=== PATIENT | female | born 1955 | race Caucasian/White ===

== ENCOUNTER → 2017-11-14 | Day surgery (SDC) | payer OTHER ==
[~2017-11-14] MED LIST: Benzocaine 20% Spray 60 ML CAN ONE
== END ==
LOC: ENDO/OP 08:22
PROVIDERS: ATTEND Internal Medicine
DX: K44.9 Diaphragmatic hernia without obstruction or gangrene (principal); K21.9 Gastro-esophageal reflux disease without esophagitis; Z86.010 Personal history of colon polyps; Z79.899 Other long term (current) drug therapy; Z90.49 Acquired absence of other specified parts of digestive tract; Z98.890 Other specified postprocedural states
CPT/HCPCS: 91010

== ENCOUNTER 2017-11-22 06:04 | Inpatient (IN) | payer OTHER ==
[2017-11-20 15:48] VITALS: BMI 38.0
[2017-11-22 07:57] LABS: Hemoglobin 5.8 g/dL (12.0-16.0); Mean Corpuscular HGB CONC 28.9 g/dL (32.0-36.0); Mean Corpuscular Hemoglobin 18.3 pg (27.0-31.0); Mean Corpuscular Volume 63.3 fl (81.0-99.0); Mean Platelet Volume 6.1 fL (7.4-10.4); Platelet Count 285 thou/uL (130-400); RBC Distribution Width 17.5 % (11.5-14.5); Red Blood Cell (RBC) Count 3.19 mill/uL (4.20-5.40); White Blood Cell (WBC) Count 4.3 thou/uL (4.8-10.8)
[2017-11-22 08:32] LABS: #Eosinphils 0.1 thou/uL (0.0-0.7); #Lymphocytes 1.2 thou/uL (1.20-3.40); #Monocytes 0.6 thou/uL (0.11-0.59); #Neutrophils 2.4 thou/uL (1.40-6.50); %Basophils 0.5 % (0.0-1.0); %Eosinophils 2.3 % (0.0-10.0); %Lymphocytes 27.1 % (21.0-51.0); %Monocytes 14.8 % (0.0-10.0); %Neutrophils 55.4 % (42.0-75.0)
[2017-11-22 08:33] LABS: Anisocytosis SLIGHT = 6-15 cells (100X) (0-5/hpf); Eosinophils 1 % (0-10); Hypochromia MODERATE=16-30 cells (100X) (0-5/hpf); Lymphocytes 27 % (21-51); MDiff Complete? YES; Monocytes 11 % (0-10); Neutrophil 59 % (42-75)
[2017-11-22] MEDS ORDERED: Sodium Chloride 0.9% 10 ML ONE (10:04)
[2017-11-22] MEDS ORDERED: D5 1/2 NS w/20 mEq KCL 1,000 ML ONE (10:09)
[2017-11-22] MEDS: Pantoprazole 40 MG VIAL IVP SCH ×2 (10:10→20:48)
[2017-11-22] MEDS: D5 1/2 NS w/20 mEq KCL 1,000 ML IV SCH ×2 (11:00→16:23)
--- NOTE | 2017-11-22 13:18 | CON ---
DATE OF CONSULTATION: 11/22/2017 HISTORY OF PRESENT ILLNESS: The patient is a 62-year-old female who was to undergo a Nisse n fundoplication for symptomatic hiatal hernia by Dr. Ledezma this morning. She was noted on routine l aboratory to have a hemoglobin of 5.8, therefore, the surgery was canceled. The patient denies any m joann, hematochezia, any menstrual blood loss. She denies any abdominal pain. She was seen by Dr. Mansoor diego on 11/07/2017 and underwent an EGD for her hiatal hernia and gastroesophageal reflux, that showed a 10 cm hiatal hernia with some Isaac's ulcers, some nodularity at the GE junctio, which was biops ied and showed no Leal's esophagus and no other abnormalities. The patient undergoes colonoscopy every 3 years for history of colon polyps and her last colonoscopy was approximately 2 years ago. PAST MEDICAL HISTORY: Significant for hypertension. PAST SURGICAL HISTORY: Includes cholecystectomy. ALLERGIES: No known allergies. SOCIAL HISTORY: She drinks occasionally. Does not smoke. FAMILY HISTORY: Negative for GI or liver disease. REVIEW OF SYSTEMS: Constitutional: No fever or chills. No weight loss. Eyes: No blurred vision o r double vision. ENT: No sore throat or earaches. Cardiovascular: No chest pain or palpitations. Pulmonary: No shortness of breath, cough or wheezing. Gastrointestinal: See above. Genitourinary : No hematuria or dysuria. Musculoskeletal: No joint pain or muscle weakness. Skin: No rashes. Neurologic: No numbness or seizure activity. PHYSICAL EXAMINATION: GENERAL: Shows a pale female in no acute distress. VITAL SIGNS: Blood pressure 131/69, pulse 74, respiratory rate 20 and temperature 97.6. HEENT: Shows pale mucous membranes. NECK: Supple. CHEST: Clear. CARDIOVASCULAR: Regular rate and rhythm. ABDOMEN: Soft, nontender, without organomegaly or masses. Bowel sounds are present and normoactive. RECTAL: Deferred. EXTREMITIES: Normal. NEUROLOGIC: Nonfocal. LABORATORY DATA: Shows a white blood cell count of 5.0, hemoglobin of 6.0, hematocrit 20.7 with an M CV of 63.6, platelet count 337,000. Chemistries are essentially normal except for glucose of 123 and BUN 27. ASSESSMENT: 1. Severe microcytic anemia consistent with iron deficiency. 2. Large hiatal hernia with Isaac's lesions - probable source of the iron deficiency. 3. History of precancerous colon polyps - patient is up to date on colonoscopy. RECOMMENDATIONS: 1. Continue proton pump inhibitor. 2. Begin iron replacement therapy. 3. Transfuse. 4. May consider outpatient capsule endoscopy - defer to Dr. Michael and Dr. Ledezma.
[2017-11-22 15:38] LABS: #Basophils 0.1 thou/uL (0.0-0.2); #Eosinphils 0.1 thou/uL (0.0-0.7); #Lymphocytes 1.8 thou/uL (1.20-3.40); #Monocytes 0.4 thou/uL (0.11-0.59); %Basophils 1.2 % (0.0-1.0); %Eosinophils 1.7 % (0.0-10.0); %Monocytes 9.5 % (0.0-10.0); %Neutrophils 46.6 % (42.0-75.0); Hemoglobin 6.8 g/dL (12.0-16.0); Mean Corpuscular HGB CONC 30.4 g/dL (32.0-36.0); Mean Corpuscular Volume 65.9 fl (81.0-99.0); Mean Platelet Volume 6.4 fL (7.4-10.4); Platelet Count 266 thou/uL (130-400); RBC Distribution Width 20.9 % (11.5-14.5); Red Blood Cell (RBC) Count 3.39 mill/uL (4.20-5.40); White Blood Cell (WBC) Count 4.3 thou/uL (4.8-10.8)
[2017-11-22] MEDS ORDERED: CEFAZOLIN/Water 2 GM/20 ML SYRINGE SLOW IVP SCH (16:30)
[2017-11-22] MEDS ORDERED: FLU VACC QS2017-18 36 mo. & older 0.5 ML SYRINGE IM ONE (21:00)
[2017-11-23] MEDS: D5 1/2 NS w/20 mEq KCL 1,000 ML IV SCH ×4 (01:30→20:14)
[2017-11-23] MEDS: Nebivolol HCl 5 MG TAB PO SCH (05:38)
[2017-11-23] MEDS ORDERED: Fentanyl 100 MCG/2 ML VIAL ONE ×2 (06:11→09:25)
[2017-11-23] MEDS ORDERED: Midazolam HCl 2 mg/2 ml Vial ONE (06:11)
[2017-11-23] MEDS ORDERED: CEFAZOLIN/Water 2 GM/20 ML SYRINGE ONE (06:11)
[2017-11-23 06:45] LABS: #Eosinphils 0.2 thou/uL (0.0-0.7); #Lymphocytes 2.7 thou/uL (1.20-3.40); #Monocytes 0.7 thou/uL (0.11-0.59); %Basophils 0.4 % (0.0-1.0); %Eosinophils 4.2 % (0.0-10.0); %Lymphocytes 47.8 % (21.0-51.0); %Monocytes 11.8 % (0.0-10.0); %Neutrophils 35.8 % (42.0-75.0); Hemoglobin 9.3 g/dL (12.0-16.0); Mean Corpuscular HGB CONC 30.1 g/dL (32.0-36.0); Mean Corpuscular Hemoglobin 21.1 pg (27.0-31.0); Mean Platelet Volume 6.2 fL (7.4-10.4); Platelet Count 311 thou/uL (130-400); RBC Distribution Width 24.4 % (11.5-14.5); Red Blood Cell (RBC) Count 4.39 mill/uL (4.20-5.40); White Blood Cell (WBC) Count 5.6 thou/uL (4.8-10.8)
[2017-11-23] MEDS ORDERED: Bupivacaine/Epinephrine 0.25% 30 ML VIAL ONE (06:48)
[2017-11-23] MEDS ORDERED: ePHEDrine/0.9% NaCl/PF SYRINGE 50 mg/10 ml ONE (06:56)
[2017-11-23] MEDS ORDERED: Propofol 200 MG/20 ML VIAL ONE (06:56)
[2017-11-23] MEDS ORDERED: Glycopyrrolate 0.2 MG/ML 5 ML SYRINGE ONE (06:56)
[2017-11-23] MEDS ORDERED: Lidocaine 1% PF 5 ML VIAL ONE (06:56)
[2017-11-23] MEDS ORDERED: Ondansetron HCl/PF 4 MG/2 ML Vial ONE (06:56)
[2017-11-23] MEDS ORDERED: Dexamethasone 20 MG/5 ML VIAL ONE (06:56)
[2017-11-23] MEDS ORDERED: Meperidine HCl/PF 25 MG/ML VIAL SLOW IVP PRN (07:25)
[2017-11-23] MEDS ORDERED: HYDROmorphone 2 MG/ML VIAL SLOW IVP PRN (07:25)
[2017-11-23] MEDS ORDERED: Promethazine HCl 25 MG/ML VIAL SLOW IVP PRN (07:25)
[2017-11-23] MEDS ORDERED: Morphine Sulfate 2 MG/ML SYRINGE SLOW IVP PRN (07:25)
[2017-11-23] MEDS ORDERED: FLU VACC QS2017-18 36 mo. & older 0.5 ML SYRINGE IM ONE (09:00)
[2017-11-23] MEDS ORDERED: Hydrocodone-Acetamin 15 ML UDCUP PO PRN (09:03)
[2017-11-23] MEDS ORDERED: diphenhydrAMINE 50 MG/ML VIAL IVP PRN ×2 (09:03→09:17)
[2017-11-23] MEDS ORDERED: Ondansetron HCl/PF 4 MG/2 ML Vial IVP PRN ×2 (09:03→09:17)
[2017-11-23] MEDS ORDERED: Dextrose 5% in Water 1,000 ML IV PRN (09:03)
[2017-11-23] MEDS ORDERED: Dextrose 50% Abboject 50 ML SYRINGE SLOW IVP PRN (09:03)
[2017-11-23] MEDS ORDERED: hydrALAZINE 20 MG/ML VIAL SLOW IVP PRN (09:03)
[2017-11-23] MEDS ORDERED: Promethazine HCl 25 MG/ML VIAL IM PRN ×2 (09:03→09:17)
[2017-11-23] MEDS ORDERED: Naloxone HCl 0.4 mg/ml Vial IV PRN (09:17)
[2017-11-23] MEDS ORDERED: Zolpidem Tartrate 5 MG TAB PO PRN (09:17)
[2017-11-23] MEDS ORDERED: diphenhydrAMINE 25 MG CAP PO PRN (09:17)
[2017-11-23] MEDS ORDERED: Fentanyl 5000 MCG/250 ML CADD IVPB PRN (09:17)
[2017-11-23] MEDS ORDERED: diphenhydrAMINE 50 MG/ML VIAL IM PRN (09:17)
[2017-11-23] MEDS ORDERED: Communication Order-Pharmacy FS SCH (09:30)
--- NOTE | 2017-11-23 09:31 | OP ---
PREOPERATIVE DIAGNOSES: Large hiatal hernia with ulceration and anemia. SURGEON: Ruperto Ledezma M.D. PROCEDURE PERFORMED: Laparoscopic hiatal hernia repair and Elder fundoplication and esophagogastrod uodenoscopy. INDICATIONS: This is a 62-year-old female, who has been having progressive chest pain. She had a ch est x-ray showing that there was an air fluid level. A CT scan showed a large hiatal hernia. EGD sh owed ulcerations, which she came in for the surgery yesterday, hemoglobin is only 6, so she had 2 uni ts of blood transfusion up to 9. FINDINGS: Moderate size hiatal hernia. The fascia was closed easily with sutures. EGD unremarkable . PROCEDURE IN DETAIL: After informed consent was obtained, the patient was taken to the operating jolanta m and given general endotracheal anesthesia. She was placed in the supine position. The abdomen was prepped and draped in the usual fashion. Local anesthesia infiltrated subcutaneously and deep. A 5 mm incision was performed approximately 8 inches below the xiphoid slightly to the left. Veress nee dle inserted. Drop test performed. Pneumoperitoneum was created to a volume of 2 liters of carbon d ioxide. Utilizing a bladeless 5 mm trocar and 0 degree laparoscope, direct visual entry into the abd ominal cavity was performed. Pneumoperitoneum was created to a pressure of 15 mmHg. The patient tremayne anand in steep reverse Trendelenburg position and Nathansen liver retractor inserted. Left lobe of tanner er retracted superiorly. A 5 mm port was placed just to the left of the falciform, an 8 mm port was placed further lateral and another 5 mm port placed inferior left side. The stomach was reduced from the chest partially and then the gastrophrenic ligament divided with the LigaSure. The peritoneum o pened anterior with the LigaSure. The left crura was defined with the LigaSure, then the short gastr ics were taken down utilizing the LigaSure, then the posterior crura was defined and a [place] drain was placed. This allowed further retraction and the entire hiatus was opened up and the esophagus re duced. Then, a 40 Italian bougie was inserted and directed into the stomach. A posterior crural plic ation was performed with 0 Ethibond in the Sew-Right and tie knot device. Then the fundus was graspe d and brought to the right side of the esophagus. It was sutured to the left fundus as well as the e sophagus with interrupted 2-0 silk sutures tied intracorporeally. Three sutures used. Then intraope rative endoscopy was performed. The video endoscope inserted under direct vision and advanced into t he sleeve. The stomach insufflated with air under water, there was no air leak. Stomach decompresse d. Scope removed. The patient tolerated the procedure well. Then the skin closed with interrupted 4-0 Rapide, this Dermabond applied. Patient tolerated the procedure well and transferred to recovery in good condition. Sponge and needle count verified correct x2.
[2017-11-23] MEDS ORDERED: fentaNYL Citrate/PF 2,000 MCG in Sodium Chloride 0.9% 60 ML IV PRN (09:45)
[2017-11-23] MEDS ORDERED: D5 1/2 NS w/20 mEq KCL 1,000 ML ONE (09:49)
[2017-11-23] MEDS: Pantoprazole 40 MG VIAL IVP SCH ×2 (10:41→20:13)
[2017-11-23] MEDS ORDERED: Ketorolac Tromethamine 30 MG/ML VIAL ONE (11:07)
[2017-11-23] MEDS ORDERED: Promethazine HCl 25 MG/ML VIAL ONE (11:18)
[2017-11-23] MEDS: Ketorolac Tromethamine 30 MG/ML VIAL IVP SCH ×2 (12:39→17:03)
[2017-11-24] MEDS: Ketorolac Tromethamine 30 MG/ML VIAL IVP SCH ×3 (00:11→13:35)
[2017-11-24] MEDS: D5 1/2 NS w/20 mEq KCL 1,000 ML IV SCH (05:43)
[2017-11-24 06:36] LABS: Anion Gap 11 mmol/L (10-20); BUN (Urea Nitrogen) 15 mg/dL (9.8-20.1); Calc. Creatinine Clearance 99 mL/min (70-130); Calcium 9.8 mg/dL (7.8-10.44); Carbon Dioxide 21 mmol/L (23-31); Chloride 108 mmol/L (98-107); Estimated GFR-MDRD 54; Glucose 117 mg/dL (80-115); Potassium 4.6 mmol/L (3.5-5.1); Sodium 135 mmol/L (136-145)
[2017-11-24 07:48] LABS: #Lymphocytes 1.5 thou/uL (1.20-3.40); #Monocytes 0.7 thou/uL (0.11-0.59); #Neutrophils 5.7 thou/uL (1.40-6.50); %Eosinophils 0.2 % (0.0-10.0); %Lymphocytes 18.5 % (21.0-51.0); %Neutrophils 72.3 % (42.0-75.0); Hemoglobin 7.1 g/dL (12.0-16.0); Hypochromia MODERATE=16-30 cells (100X) (0-5/hpf); MDiff Complete? YES; Mean Corpuscular HGB CONC 29.8 g/dL (32.0-36.0); Mean Corpuscular Hemoglobin 20.9 pg (27.0-31.0); Mean Platelet Volume 5.3 fL (7.4-10.4); Microcytosis MODERATE=15-30 cells (100X) (0-5/hpf); Platelet Count 243 thou/uL (130-400); Poikilocytosis SLIGHT = 6-15 cells (100X) (0-5/hpf); RBC Distribution Width 24.1 % (11.5-14.5); Red Blood Cell (RBC) Count 3.41 mill/uL (4.20-5.40); White Blood Cell (WBC) Count 7.9 thou/uL (4.8-10.8)
[2017-11-24] MEDS ORDERED: Pantoprazole 40 MG VIAL IVP SCH (09:00)
[2017-11-24] MEDS ORDERED: Enoxaparin Sodium 40 MG/0.4 ML SYRINGE SC SCH (09:00)
[2017-11-24] MEDS: Pantoprazole 40 MG VIAL IVP SCH (09:34)
--- NOTE | 2017-11-24 11:38 | RAD ---
SINGLE CONTRAST UPPER GI: CLINICAL HISTORY: Recent hiatal herniorrhaphy, postoperative evaluation. FINDINGS: Small volume radiopaque contrast was instilled and was ingested by the patient unremarkably. Contras t freely traverses the esophagus and operative site without abnormal leakage. Contrast enters into t he stomach without significant abnormal holdup. IMPRESSION: No abnormal leakage of contrast evident fluoroscopically. POS: [facility]
[2017-11-24] MEDS ORDERED: Hydrocodone-Acetamin 15 ML UDCUP PO PRN (12:08)
[2017-11-24 12:38] VITALS: BP 132/78; TEMP 97.4
[2017-11-24] MEDS: Nebivolol HCl 5 MG TAB PO SCH (14:17)
--- NOTE | 2017-11-24 16:39 | DIS ---
DISCHARGE DIAGNOSIS: Bleeding hiatal hernia, severe anemia. PROCEDURES DURING ADMISSION: Blood transfusion, laparoscopic hiatal hernia repair with Elder fundop lication, intraoperative esophagogastroduodenoscopy, postoperative Gastrografin swallow. HOSPITAL COURSE: The patient was admitted. She was severely anemic with hemoglobin 5.8. She requir ed 2 units of packed cells. Then the following day when her hemoglobin is back up over 9, she was ta emmanuel to the operating room where she underwent a laparoscopic hiatal hernia repair that went well. In traoperative EGD was fine. Postoperatively, she has done well. She tolerated ice chips well. She i s going down for her swallow and will be started on liquids within she will be discharged when she to lerates 8 ounces fluid in 2 hours. DISCHARGE MEDICATIONS: Include hydrocodone elixir, Zofran and Prevacid Solutab. She will follow up with me in 3 days to check her iron.
== END 2017-11-24 14:12 | disposition home or self-care (01) | DRG 326 ==
LOC: SDC 06:04 → SURG A 14:23
PROVIDERS: ADMIT Surgery; ATTEND Surgery
PROC: 30233N1 Transfusion of Nonautologous Red Blood Cells into Peripheral Vein, Percutaneous Approach (ICD-10-PCS; 2017-11-22)
PROC: 0DV48ZZ Restriction of Esophagogastric Junction, Via Natural or Artificial Opening Endoscopic (ICD-10-PCS; principal; 2017-11-23)
PROC: 0BQT4ZZ Repair Diaphragm, Percutaneous Endoscopic Approach (ICD-10-PCS; 2017-11-23)
DX: K21.9 Gastro-esophageal reflux disease without esophagitis (principal); K25.4 Chronic or unspecified gastric ulcer with hemorrhage; K44.9 Diaphragmatic hernia without obstruction or gangrene; D50.9 Iron deficiency anemia, unspecified; I10 Essential (primary) hypertension; D50.0 Iron deficiency anemia secondary to blood loss (chronic)
CPT/HCPCS: 36415; 36430; 74241; 80048; 80053; 85025; 85060; 86850; 86900; 86901; 93005; 93010; A4216; C9113; J0131; J1100; J1650; J1885; J2001; J2250; J2405; J2550; J2704; J3010; J7050; P9016

== ENCOUNTER → 2018-07-16 | Day surgery (SDC) | payer OTHER | LOC: BICULT 12:29 | PROVIDERS: ATTEND Surgery | PROC: 0HBT3ZX Excision of Right Breast, Percutaneous Approach, Diagnostic (ICD-10-PCS; principal; 2018-07-16) | DX: N60.31 Fibrosclerosis of right breast (principal) | CPT/HCPCS: 19083; 88305; G0279 ==

== ENCOUNTER 2018-07-24 16:34 | Outpatient (CLI) | payer OTHER ==
[2018-07-24 18:08] LABS: #Basophils 0.1 thou/uL (0.0-0.2); #Eosinphils 0.1 thou/uL (0.0-0.7); #Lymphocytes 1.3 thou/uL (1.20-3.40); #Monocytes 0.4 thou/uL (0.11-0.59); #Neutrophils 3.2 thou/uL (1.40-6.50); %Basophils 1.3 % (0.0-1.0); %Eosinophils 2.8 % (0.0-10.0); %Lymphocytes 25.3 % (21.0-51.0); %Monocytes 7.6 % (0.0-10.0); %Neutrophils 63.1 % (42.0-75.0); Hemoglobin 13.8 g/dL (12.0-16.0); Mean Corpuscular HGB CONC 31.7 g/dL (32.0-36.0); Mean Corpuscular Hemoglobin 30.1 pg (27.0-31.0); Mean Corpuscular Volume 94.9 fL (78.0-98.0); Mean Platelet Volume 8.6 fL (7.4-10.4); Platelet Count 212 thou/uL (130-400); RBC Distribution Width 11.7 % (11.5-14.5); Red Blood Cell (RBC) Count 4.59 mill/uL (4.20-5.40); White Blood Cell (WBC) Count 5.1 thou/uL (4.8-10.8)
[2018-07-24 18:16] LABS: ALT (SGPT) 20 U/L (8-55); AST (SGOT) 21 U/L (5-34); Albumin 4.2 g/dL (3.4-4.8); Alkaline Phosphatase 79 U/L (40-150); Anion Gap 14 mmol/L (10-20); BUN (Urea Nitrogen) 21 mg/dL (9.8-20.1); Bilirubin, Total 1.6 mg/dL (0.2-1.2); Calc. Creatinine Clearance 0 mL/min (70-130); Calcium 10.5 mg/dL (7.8-10.44); Carbon Dioxide 22 mmol/L (23-31); Chloride 111 mmol/L (98-107); Estimated GFR-MDRD 45; Globulin 2.9 g/dL (2.4-3.5); Glucose 129 mg/dL (80-115); Potassium 3.8 mmol/L (3.5-5.1); Protein, Total 7.1 g/dL (6.0-8.3); Sodium 143 mmol/L (136-145)
== END 2018-07-24 16:35 | disposition home or self-care (01) ==
LOC: LABBT 16:34
PROVIDERS: ATTEND Surgery
DX: Z01.818 Encounter for other preprocedural examination (principal); K44.9 Diaphragmatic hernia without obstruction or gangrene
CPT/HCPCS: 80053; 85025; 93005; 93010

== ENCOUNTER 2018-11-22 15:03 | Outpatient (CLI) | payer OTHER, MEDICARE ==
[2018-11-22 15:28] LABS: #Eosinphils 0.1 thou/uL (0.0-0.7); #Lymphocytes 1.7 thou/uL (1.20-3.40); #Monocytes 0.5 thou/uL (0.11-0.59); #Neutrophils 3.6 thou/uL (1.40-6.50); %Basophils 0.4 % (0.0-1.0); %Eosinophils 1.7 % (0.0-10.0); %Lymphocytes 29.3 % (21.0-51.0); %Monocytes 7.8 % (0.0-10.0); %Neutrophils 60.7 % (42.0-75.0); Hemoglobin 16.4 g/dL (12.0-16.0); Mean Corpuscular HGB CONC 34.9 g/dL (32.0-36.0); Mean Corpuscular Hemoglobin 33.1 pg (27.0-31.0); Mean Corpuscular Volume 94.7 fL (78.0-98.0); Mean Platelet Volume 8.7 fL (7.4-10.4); Platelet Count 211 thou/uL (130-400); RBC Distribution Width 11.2 % (11.5-14.5); Red Blood Cell (RBC) Count 4.94 mill/uL (4.20-5.40); White Blood Cell (WBC) Count 5.9 thou/uL (4.8-10.8)
[2018-11-22 15:50] LABS: ALT (SGPT) 13 U/L (8-55); AST (SGOT) 17 U/L (5-34); Albumin 4.3 g/dL (3.4-4.8); Alkaline Phosphatase 80 U/L (40-150); Anion Gap 13 mmol/L (10-20); BUN (Urea Nitrogen) 26 mg/dL (9.8-20.1); Bilirubin, Total 1.8 mg/dL (0.2-1.2); Calc. Creatinine Clearance 0 mL/min (70-130); Calcium 10.9 mg/dL (7.8-10.44); Carbon Dioxide 22 mmol/L (23-31); Chloride 109 mmol/L (98-107); Estimated GFR-MDRD 54; Globulin 3.3 g/dL (2.4-3.5); Glucose 95 mg/dL (80-115); Potassium 3.8 mmol/L (3.5-5.1); Protein, Total 7.6 g/dL (6.0-8.3); Sodium 140 mmol/L (136-145)
== END 2018-11-22 15:04 | disposition home or self-care (01) ==
LOC: LABBT 15:03
PROVIDERS: ATTEND Surgery
DX: Z01.818 Encounter for other preprocedural examination (principal); K44.9 Diaphragmatic hernia without obstruction or gangrene
CPT/HCPCS: 80053; 85025; 93005; 93010

== ENCOUNTER 2018-11-25 06:03 | Inpatient (IN) | payer OTHER, MEDICARE ==
[2018-11-25] MEDS ORDERED: CEFAZOLIN 2 GM/50 ML BAG ONE (06:50)
[2018-11-25] MEDS ORDERED: Famotidine/PF 20 mg/2ml Vial ONE (06:50)
[2018-11-25] MEDS ORDERED: Scopolamine 1.5 mg/72 hour Patch ONE (06:50)
[2018-11-25] MEDS ORDERED: Ondansetron PF 4 MG/2 ML Vial ONE ×2 (06:50→14:37)
[2018-11-25] MEDS ORDERED: Bupivacaine/Epinephrine 0.25% 30 ML VIAL ONE (07:03)
[2018-11-25] MEDS ORDERED: Propofol 500 MG/50 ML VIAL ONE ×2 (07:20→08:39)
[2018-11-25] MEDS ORDERED: Fentanyl 100 MCG/2 ML VIAL ONE ×2 (07:21→10:14)
[2018-11-25] MEDS ORDERED: hydrALAZINE 20 MG/ML VIAL SLOW IVP PRN (09:27)
[2018-11-25] MEDS ORDERED: Ondansetron PF 4 MG/2 ML Vial IVP PRN ×2 (09:27→09:53)
[2018-11-25] MEDS ORDERED: Hydrocodone-Acetamin 15 ML UDCUP PO PRN (09:27)
[2018-11-25] MEDS ORDERED: Promethazine HCl 25 MG/ML VIAL IM PRN ×4 (09:27→09:56)
[2018-11-25] MEDS ORDERED: Dextrose 5% in Water 1,000 ML IV PRN (09:27)
[2018-11-25] MEDS ORDERED: diphenhydrAMINE 50 MG/ML VIAL IVP PRN ×3 (09:27→09:56)
[2018-11-25] MEDS ORDERED: Dextrose 50% Abboject 50 ML SYRINGE SLOW IVP PRN (09:27)
[2018-11-25] MEDS ORDERED: CEFAZOLIN/Water 2 GM/20 ML SYRINGE SLOW IVP SCH (09:30)
[2018-11-25] MEDS ORDERED: Promethazine HCl 25 MG/ML VIAL SLOW IVP PRN (09:53)
[2018-11-25] MEDS ORDERED: Zolpidem Tartrate 5 MG TAB PO PRN ×2 (09:53→09:56)
[2018-11-25] MEDS ORDERED: diphenhydrAMINE 50 MG/ML VIAL IM PRN ×2 (09:53→09:56)
[2018-11-25] MEDS ORDERED: Ondansetron HCl/PF 4 MG/2 ML Vial IVP PRN (09:53)
[2018-11-25] MEDS ORDERED: Naloxone HCl 0.4 mg/ml Vial IV PRN ×2 (09:53→09:56)
[2018-11-25] MEDS ORDERED: diphenhydrAMINE 25 MG CAP PO PRN ×2 (09:53→09:56)
[2018-11-25] MEDS ORDERED: fentaNYL Citrate/PF 2,000 MCG in Sodium Chloride 0.9% 60 ML IV PRN (09:56)
[2018-11-25] MEDS ORDERED: Communication Order-Pharmacy FS SCH ×2 (10:00)
[2018-11-25] MEDS ORDERED: D5 1/2 NS w/20 mEq KCL 1,000 ML ONE (10:17)
[2018-11-25] MEDS: D5 1/2 NS w/20 mEq KCL 1,000 ML IV SCH ×3 (11:30→20:20)
[2018-11-25] MEDS ORDERED: Ketorolac Tromethamine 30 MG/ML VIAL IVP SCH (12:00)
--- NOTE | 2018-11-25 12:03 | OP ---
DATE OF PROCEDURE: 11/25/2018 PREOPERATIVE DIAGNOSIS: Recurrent paraesophageal hernia with obstruction. PROCEDURES PERFORMED: Laparoscopic recurrent paraesophageal hernia repair with mesh and gastropexy. INDICATIONS: This is a 63-year-old female, who had two previous paraesophageal hernia repairs done laparoscopically, who was doing very well, fell, and had experienced abdominal pain with dysphagia. A CT scan documented recurrent paraesophageal hernia posteriorly. FINDINGS: She had a recurrent posterior paraesophageal hernia. DESCRIPTION OF PROCEDURE: After informed consent was obtained, the patient was taken to the operating room, given general endotracheal anesthesia, placed in the supine position. Abdomen was prepped and draped in usual fashion. Local anesthesia infiltrated subcutaneously and deep. A 5 mm incision was performed approximately 8 inches below the xiphoid slightly to the left. Veress needle inserted. Drop test performed. Pneumoperitoneum was created to a volume of 2 L of carbon dioxide. Utilizing a bladeless 5 mm trocar and 0-degree laparoscope, direct visual entry into the abdominal cavity was performed. Pneumoperitoneum was then created to a pressure of 15 mmHg. The patient placed in steep reverse Trendelenburg position. Lashawn liver retractor inserted. Left lobe of liver retracted superiorly. A 5-mm port was placed just to the left of the falciform. Then, an 8-mm port was placed in the lateral subcostal. Then, another 5 mm port was placed inferior lateral. The hernia was posterior and it was very mobile. I was able to reduce the recurrent hernia pretty easily. Then, once it was reduced, a careful dissection was performed circumferentially around the hiatus to reduce the entire old wrap and free up the esophagus circumferentially. Once this was done, it did not appear that there was any tension nor shortening of the esophagus. It did appear as though the previous pexy stitch had torn loose. A posterior crural plication was performed over a 40-Luxembourger bougie utilizing the Sew-Right and Ti-Knot device with 0 Ethibond. Two stitches placed posteriorly. Then, the Strattice mesh was cut. A 6 x 8 cm piece of Strattice mesh was cut into a heart shape with a hole cut out for the esophagus. This was hydrated, inserted intra-abdominally, and then placed around the esophagus with emphasis both left side and posterior for closure. Then, it was also tacked right side and anteriorly. At this point, an another tacking or pexy stitch was performed to the fundus to the left upper abdomen to maintain reduction of the hernia. An intraoperative endoscopy was performed. The video endoscope inserted under direct vision. Inside the stomach, there was quite a bit of fluid. No retained food, but it seemed as though there might be some gastric emptying issues with liquids at this point. Hopefully, temporary. This was all removed. The scope retroflexed. The wrap looked it had no torsion nor paraesophageal hernia. The scope was advanced through the pylorus. Pylorus was patent and opened. The stomach decompressed, the scope removed. Then, utilizing Tisseel tissue sealant, this was applied to the mesh, esophagus, and left crura primarily, then anteriorly and on the right side as well. Trocars and retractors were removed. The skin closed with interrupted 4-0 Rapide. Dermabond applied. The patient tolerated the procedure well, transferred to Recovery in good condition. Sponge and needle count verified correct x2. Job ID: [id number]
[2018-11-25 12:44] VITALS: BMI 35.0
[2018-11-25] MEDS: Ondansetron PF 4 MG/2 ML Vial IVP PRN ×2 (14:31→20:31)
[2018-11-25] MEDS ORDERED: Glycopyrrolate 0.2 MG/ML 5 ML SYRINGE ONE ×2 (14:37)
[2018-11-25] MEDS ORDERED: Succinylcholine Chloride 20 MG/ML 10 ml SYRINGE FS ONE (14:37)
[2018-11-25] MEDS ORDERED: Metoclopramide HCl 10 MG/2 ML VIAL ONE (14:37)
[2018-11-25] MEDS ORDERED: Dexamethasone 20 MG/5 ML VIAL ONE (14:37)
[2018-11-25] MEDS ORDERED: Ketorolac Tromethamine 30 MG/ML VIAL ONE (14:37)
[2018-11-25] MEDS ORDERED: ePHEDrine/0.9% NaCl/PF SYRINGE 50 mg/10 ml ONE (14:37)
[2018-11-25] MEDS ORDERED: PROPOFOL 200 MG/20 ML VIAL ONE ×2 (14:37)
[2018-11-25] MEDS ORDERED: Lidocaine 1% PF 5 ML VIAL ONE (14:37)
[2018-11-25] MEDS ORDERED: PHENYLEPHRINE-NS 100 MCG/ML 10 ML SYRINGE ONE (14:37)
[2018-11-25] MEDS: Ketorolac Tromethamine 30 MG/ML VIAL IVP SCH ×2 (15:55→20:17)
[2018-11-25] MEDS: CEFAZOLIN 2 GM/50 ML-DEXTROSE 2 GM in Premix Bag 1 BAG IVPB SCH (15:56)
[2018-11-26] MEDS: CEFAZOLIN 2 GM/50 ML-DEXTROSE 2 GM in Premix Bag 1 BAG IVPB SCH (00:28)
[2018-11-26] MEDS: Ketorolac Tromethamine 30 MG/ML VIAL IVP SCH ×4 (03:35→20:45)
[2018-11-26] MEDS: D5 1/2 NS w/20 mEq KCL 1,000 ML IV SCH ×3 (03:36→20:44)
[2018-11-26 06:55] LABS: #Lymphocytes 0.8 thou/uL (1.20-3.40); #Monocytes 0.7 thou/uL (0.11-0.59); #Neutrophils 7.1 thou/uL (1.40-6.50); %Basophils 0.2 % (0.0-1.0); %Eosinophils 0.2 % (0.0-10.0); %Lymphocytes 9.7 % (21.0-51.0); %Monocytes 8.2 % (0.0-10.0); %Neutrophils 81.7 % (42.0-75.0); Hemoglobin 13.6 g/dL (12.0-16.0); Mean Corpuscular HGB CONC 34.6 g/dL (32.0-36.0); Mean Corpuscular Hemoglobin 32.8 pg (27.0-31.0); Mean Platelet Volume 9.1 fL (7.4-10.4); Platelet Count 183 thou/uL (130-400); Red Blood Cell (RBC) Count 4.14 mill/uL (4.20-5.40); White Blood Cell (WBC) Count 8.7 thou/uL (4.8-10.8)
[2018-11-26 07:16] LABS: Anion Gap 8 mmol/L (10-20); BUN (Urea Nitrogen) 29 mg/dL (9.8-20.1); Calc. Creatinine Clearance 70 mL/min (70-130); Carbon Dioxide 22 mmol/L (23-31); Chloride 107 mmol/L (98-107); Estimated GFR-MDRD 40; Glucose 138 mg/dL (80-115); Potassium 4.5 mmol/L (3.5-5.1); Sodium 132 mmol/L (136-145)
[2018-11-26] MEDS: Enoxaparin Sodium 40 MG/0.4 ML SYRINGE SC SCH (08:58)
[2018-11-26] MEDS: Pantoprazole 40 MG VIAL IVP SCH (08:58)
--- NOTE | 2018-11-26 09:18 | RAD ---
LIMITED UPPER GI: Date: 11-26-18 History: Patient with repair of previous hiatal hernia. Fluoroscopy: Fluoroscopy time 1.2 minutes, total dose 102.61 mGy*cm^2. FINDINGS: 15 ml of Gastrografin was administered during the study. Contrast does extend through the GE junction but there is holdup at the level of the GE junction with only a small amount of contrast traversing this region and into the stomach. After 10 minutes, contrast did persist in the distal esophagus. The re is no extravasation of contrast seen to suggest a leak. There is a suggestion of a small amount of intraperitoneal free gas at the right lung base probably r elated to recent post-surgical change. IMPRESSION: 1. Post-surgical changes related to hiatal hernia repair. There is prominent narrowing seen at the le meryl of the GE junction. A small amount of contrast traverses the GE junction into the stomach. Contra st did persist in the stomach after 10 minutes of imaging. 2. Tiny amount of free intraperitoneal gas beneath the right hemidiaphragm likely related to recent p ost-surgical changes. 3. Findings discussed with Dr. Ledezma on 11-26-18 at 0841 hours. POS: [facility]
--- NOTE | 2018-11-26 12:55 | PRG ---
DATE OF SERVICE: 11/26/2018 SUBJECTIVE: The patient reports feeling no reflux. Her pain is moderate. No nausea or vomiting. OBJECTIVE: VITAL SIGNS: On exam, her temperature is 98.4, pulse 44, blood pressure 139/84. GENERAL: She looks good. She is wide awake. Incisions are healing well. There is no evidence of drainage or infection. She is voiding well. LABORATORY DATA: Her white count is 8.7, H and H are 13 and 39, platelet count is 183. Electrolytes; creatinine is little elevated at 1.34, BUN of 29, otherwise fine. Her swallow showed moderate swelling at the EG junction, but the contrast did go through. PLAN: To begin clear liquid diet. We will go slow. When she is able to stay hydrated, we will let her go home. Job ID: [id number]
[2018-11-27] MEDS: Ketorolac Tromethamine 30 MG/ML VIAL IVP SCH ×2 (03:14→09:39)
[2018-11-27] MEDS: D5 1/2 NS w/20 mEq KCL 1,000 ML IV SCH (04:27)
[2018-11-27 09:14] VITALS: TEMP 97.5
[2018-11-27] MEDS: Enoxaparin Sodium 40 MG/0.4 ML SYRINGE SC SCH (09:39)
[2018-11-27] MEDS: Pantoprazole 40 MG VIAL IVP SCH (09:39)
[2018-11-27 12:34] VITALS: BP 144/78
--- NOTE | 2018-11-27 14:38 | DIS ---
DATE OF ADMISSION: 11/25/2018 DATE OF DISCHARGE: 11/27/2018 DISCHARGE DIAGNOSIS: Recurrent paraesophageal hernia with obstruction. PROCEDURES DURING ADMISSION: Laparoscopic paraesophageal hernia repair with mesh, intraoperative esophagogastroscopy, postoperative Gastrografin swallow. HOSPITAL COURSE: The patient was admitted, taken to the operating room, where she underwent a laparoscopic paraesophageal hernia repair with mesh. Postoperatively, she did well. Gas swallow showed some slowing at the EG junction. She was started on liquids, but was unable to tolerate enough initially to go home, but she is doing much better now and tolerating liquids better. She is discharged home on hydrocodone and Zofran. She will follow up with me in 2 weeks. Job ID: [id number]
== END 2018-11-27 13:56 | disposition home or self-care (01) | DRG 328 ==
LOC: SDC 06:03 → SURG B 11:02
PROVIDERS: ADMIT Surgery; ATTEND Surgery
PROC: 0BUT4JZ Supplement Diaphragm with Synthetic Substitute, Percutaneous Endoscopic Approach (ICD-10-PCS; principal; 2018-11-25)
PROC: 0DJ08ZZ Inspection of Upper Intestinal Tract, Via Natural or Artificial Opening Endoscopic (ICD-10-PCS; 2018-11-25)
DX: K44.0 Diaphragmatic hernia with obstruction, without gangrene (principal); Z90.49 Acquired absence of other specified parts of digestive tract; Z98.890 Other specified postprocedural states
CPT/HCPCS: 36415; 74241; 80048; 80053; 85025; 93005; 93010; C9113; J0131; J1100; J1650; J1885; J2001; J2405; J2550; J2704; J2765; J3010; J7050; Q4130; S0028

== ENCOUNTER 2018-12-11 14:58 | Outpatient (CLI) | payer OTHER, MEDICARE ==
--- NOTE | 2018-12-11 16:39 | RAD ---
CHEST 2 VIEWS: Date: 12/11/18 HISTORY: Chest and shoulder pain. FINDINGS: No comparison. Cardiac silhouette and pulmonary vasculature are unremarkable. Mediastinum is midline. No confluent a ir space consolidation, pneumothorax, or pleural fluid. IMPRESSION: No active cardiopulmonary abnormalities are demonstrated. POS: [facility]
== END 2018-12-11 14:59 | disposition home or self-care (01) ==
LOC: RAD 14:58
PROVIDERS: ATTEND Surgery
DX: M25.512 Pain in left shoulder (principal); Z98.890 Other specified postprocedural states
CPT/HCPCS: 71046

== ENCOUNTER 2019-05-19 15:49 | Inpatient (IN) | payer OTHER, MEDICARE ==
[2019-05-19 17:42] LABS: #Basophils 0.1 thou/uL (0.0-0.2); #Eosinphils 0.1 thou/uL (0.0-0.7); #Lymphocytes 2.1 thou/uL (1.20-3.40); #Monocytes 0.7 thou/uL (0.11-0.59); #Neutrophils 4.2 thou/uL (1.40-6.50); %Basophils 0.7 % (0.0-1.0); %Eosinophils 0.9 % (0.0-10.0); %Lymphocytes 29.8 % (21.0-51.0); %Neutrophils 58.6 % (42.0-75.0); Hemoglobin 16.1 g/dL (12.0-16.0); Mean Corpuscular HGB CONC 33.1 g/dL (32.0-36.0); Mean Corpuscular Hemoglobin 31.8 pg (27.0-31.0); Mean Platelet Volume 8.6 fL (7.4-10.4); Platelet Count 247 thou/uL (130-400); RBC Distribution Width 11.3 % (11.5-14.5); Red Blood Cell (RBC) Count 5.08 mill/uL (4.20-5.40); White Blood Cell (WBC) Count 7.2 thou/uL (4.8-10.8)
[2019-05-19 18:02] LABS: ALT (SGPT) 16 U/L (8-55); AST (SGOT) 17 U/L (5-34); Albumin 4.5 g/dL (3.4-4.8); Alkaline Phosphatase 79 U/L (40-150); Anion Gap 13 mmol/L (10-20); BUN (Urea Nitrogen) 42 mg/dL (9.8-20.1); Bilirubin, Total 1.4 mg/dL (0.2-1.2); Calc. Creatinine Clearance 0 mL/min (70-130); Calcium 11.7 mg/dL (7.8-10.44); Carbon Dioxide 24 mmol/L (23-31); Chloride 104 mmol/L (98-107); Estimated GFR-MDRD 25; Globulin 3.2 g/dL (2.4-3.5); Glucose 97 mg/dL (80-115); Protein, Total 7.7 g/dL (6.0-8.3); Sodium 137 mmol/L (136-145)
--- NOTE | 2019-05-19 18:55 | CT ---
CT Abdomen Pelvis WO Con: 05/19/2019 6:17 PM HISTORY: Nausea and vomiting for 4 days. COMPARISON: None. Procedure: Multiple contiguous axial images were obtained and a CT of the abdomen and pelvis without IV contrast . Coronal reformats were performed. FINDINGS: This examination is limited for the evaluation of solid organs and vascular structures due to the lac k of intravenous contrast. Lower Chest: Moderate hiatal hernia. Otherwise, within normal limits. Abdomen: Liver: within normal limits. Bile Ducts: Normal caliber. Gallbladder: Status post cholecystectomy. Pancreas: within normal limits. Spleen: within normal limits. Adrenals: within normal limits. Kidneys: within normal limits. Pelvis: Reproductive Organs: No pelvic masses. Ureters: within normal limits. Bladder: within normal limits. Bowel: Normal caliber. Scattered diverticula in the colon. Normal appendix. Mesenteric Lymph Nodes: No enlarged mesenteric lymph nodes. Peritoneum: No ascites or free air, no fluid collection. Vessels: Atherosclerotic calcifications in the aorta Retroperitoneum: within normal limits. Abdominal Wall: within normal limits. Bones: Degenerative changes in the spine. IMPRESSION: 1. No evidence of acute intraabdominal\pelvic abnormality. 2. Diverticulosis 3. Hiatal hernia
[2019-05-19] MEDS ORDERED: Metoclopramide HCl 10 MG/2 ML VIAL ONE (20:52)
[2019-05-19] MEDS ORDERED: diphenhydrAMINE 50 MG/ML VIAL ONE (20:52)
[2019-05-19 23:25] VITALS: BMI 36.1
[2019-05-19] MEDS ORDERED: Ondansetron PF 4 MG/2 ML Vial IVP PRN (23:41)
[2019-05-19] MEDS ORDERED: Ondansetron ODT 4 MG TAB SL PRN (23:41)
[2019-05-19] MEDS ORDERED: Promethazine HCl 25 MG/ML VIAL IVPB PRN (23:42)
[2019-05-20] MEDS: Lactated Ringer's 1,000 ML IV SCH ×5 (03:50→23:03)
[2019-05-20] MEDS ORDERED: MD-Gastroview 120 ML BOT ONE (08:01)
[2019-05-20] MEDS ORDERED: Ondansetron ODT 4 MG TAB PO PRN (08:33)
[2019-05-20] MEDS ORDERED: Promethazine HCl 25 MG/ML VIAL IVPB PRN (08:34)
[2019-05-20 09:55] LABS: Anion Gap 11 mmol/L (10-20); BUN (Urea Nitrogen) 38 mg/dL (9.8-20.1); Calc. Creatinine Clearance 61 mL/min (70-130); Calcium 9.9 mg/dL (7.8-10.44); Carbon Dioxide 22 mmol/L (23-31); Chloride 108 mmol/L (98-107); Estimated GFR-MDRD 33; Glucose 100 mg/dL (80-115); Potassium 4.4 mmol/L (3.5-5.1); Sodium 137 mmol/L (136-145)
[2019-05-20] MEDS ORDERED: PROMETHAZINE HCL IVPB PRN (13:43)
[2019-05-20] MEDS ORDERED: SODIUM CHLORIDE 0.9% IVPB PRN (13:43)
[2019-05-20] MEDS: Famotidine/PF 20 mg/2ml Vial SLOW IVP SCH ×2 (13:45→21:18)
--- NOTE | 2019-05-20 14:36 | HP ---
CHIEF COMPLAINT: Nausea and vomiting. HISTORY OF PRESENT ILLNESS: The patient is a very pleasant 63-year-old female with past medical history significant for hiatal hernia, status post repair x4, most recent on November of 2018, where she underwent laparoscopic paraesophageal hernia repair with mesh with Dr. Ledezma. The patient had been having some intermittent issues with nausea and vomiting since February, however, last Sunday, she began experiencing some vomiting and regurgitation that she described as foamy. She began to feel nauseated and has had very poor oral intake, and in fact states that , approximately 4 days ago with her last meal. She states that when she does eat, food will stay down for about half hour, and then she regurgitates it up, and describes the regurgitation as foamy in nature. The patient has continued to feel very fatigued and generally unwell due to her poor oral intake, and so presented to the ED for further workup and treatment. Dr. Benitez was consulted from the emergency department and did recommend admission to the observation unit. On arrival, the patient's laboratory data was significant for a creatinine of 2.02. Her baseline is normal around 0.98 to 1. The patient was treated with Reglan and Benadryl in the ER, along with IV fluid resuscitation. Upon my interview, the patient states that she feels much improved. She slept well overnight and believes that the IV fluids have helped her as well. At the time of my interview, she is able to sip small amounts of juice and keep that down. REVIEW OF SYSTEMS: A 12-point review of systems was performed and is negative. The patient states that she has had no fever or chills. No chest pain or shortness of breath. The patient was doing well and in her usual state of health up until last Sunday. ALLERGIES: NO KNOWN DRUG ALLERGIES. HOME MEDICATIONS: Losartan 50 mg one tablet p.o. daily. PAST MEDICAL HISTORY: Hypertension, hiatal hernia. PAST SURGICAL HISTORY: The patient states that she has had hernia repair x4. Last repair was November 2018, when the patient underwent laparoscopic paraesophageal hernia repair with mesh. SOCIAL HISTORY: The patient drinks alcohol socially on occasion. Denies any illicit drug use and has never smoked. FAMILY HISTORY: Positive for unknown malignancy in her father, and her mother from Alzheimer's. PHYSICAL EXAMINATION: VITAL SIGNS: Blood pressure 127/74, pulse is 72, respirations are 20, O2 saturation is 96% on room air, temperature 97.7. GENERAL: The patient is a moderately obese female, resting comfortably in bed, in no acute distress. HEENT: Head is atraumatic and normocephalic. Mucous membranes are moist. NECK: Supple. Trachea is midline. There is no JVD. CV: S1 and S2. Regular rate and rhythm. No appreciable murmurs, rubs, or gallops. LUNGS: Regular respiratory rate and pattern. Clear to auscultation bilaterally. ABDOMEN: Hypoactive bowel sounds. Nontender. EXTREMITIES: No edema. +2 DP pulses bilaterally. NEUROLOGIC: Cranial nerves 2 through 12 are intact. The patient is nonfocal. LABORATORY DATA: White blood cell count 7.2, hemoglobin 16.1, hematocrit 48.7, platelet count is 247. Sodium 137, potassium 4.0, chloride 104, carbon dioxide 24, anion gap 13, BUN 42, creatinine 2.02. AST, ALT, alkaline phosphatase all within normal limits. ASSESSMENT: 1. Vomiting and regurgitation resulting in poor oral intake and dehydration, unclear if related to her hiatal hernia and repair, November 2018. ? obstruction, upper GI series is pending 2. Moderate hiatal hernia per CT scan, status post repair x4, most recent repair November 2018. 3. Acute kidney injury secondary to dehydration and poor oral intake, creatinine greater than 2, baseline is normal. 4. Hypertension. PLAN: At this time, both General Surgery and GI have been consulted. We will continue IV fluid resuscitation and clear liquid diet as the patient tolerates. Upper GI series is pending. We will hold off on her antihypertensive medication in light of acute kidney injury as well as dehydration. We will repeat BMP in the morning. We will also obtain lipase. Further recommendations based on hospital course. Appreciate very much GI and Surgery input. Job ID: [id number] MIKEY
--- NOTE | 2019-05-20 14:41 | RAD ---
Exam: Upper GI and esophagram HISTORY: Hiatal hernia. Multiple episodes of emesis. Exposure: 0.7 minutes, 16.759 Gy*cm2. FINDINGS: The initial biomedical service engineer radiograph of the abdomen demonstrates rightward curvature of the lumbar spine. Bronson el gas pattern is nonspecific Patient was administered a small amount of Gastrografin. This delayed passage of Gastrografin. There is evidence of a distended stomach with an air-fluid level. Contrast does not appear to go beyond the esophagus and into the stomach despite slight delay images being performed. IMPRESSION: Evidence of high-grade obstruction in the distal esophagus, just proximal to the GE junction. There i s a large hiatal hernia which displaces the esophagus laterally and posteriorly. Results study discussed with Dr. Benitez 05/20/2019 at 2:41 PM Code CR Transcribed Date/Time: 05/20/2019 2:46 PM
[2019-05-20] MEDS: Enoxaparin Sodium 40 MG/0.4 ML SYRINGE SC SCH (21:17)
--- NOTE | 2019-05-21 00:59 | HP ---
HISTORY OF PRESENT ILLNESS: Cherise Mcdermott is a 63-year-old female, who presented to the emergency room last night, admitted by the [facility] service. The patient had complained of dysphagia. The patient has complained of postprandial nausea, regurgitation, progressive since March. She became more severe 6 days ago when she flew in from [place] because of inability to tolerate eating and swallowing, and she was seen in the emergency room and admitted. She had a CAT scan that revealed a recurrent hiatal hernia, moderate. She was noted to have a white count of 7, hemoglobin of 16. Her vital signs were normal. She did not have any pain. As stated above, she had been experiencing this since March, worsening in April and severely worse the last 6 days. The patient has been followed by Dr. Ledezma and underwent on 11/23/2017 laparoscopic hiatal hernia repair with a Elder fundoplication, had recurrent hiatal hernia and on 07/26/2018, underwent a repeat laparoscopic paraesophageal hernia repair with an EGD with herniation to the left of the esophagus. On 11/25/2018, she suffered another recurrence undergoing Strattice mesh reinforcement of hiatal repair for recurrent paraesophageal hernia and gastropexy. Her original hernia is described as 10 cm. ALLERGIES: NONE. TOBACCO: None. ALCOHOL: None. MEDICATIONS: 1. Losartan. 2. Potassium daily. PAST SURGICAL HISTORY: Laparoscopic cholecystectomy, ORIF of left arm, hiatal hernia repairs as noted. PAST MEDICAL HISTORY: Hypertension. She is up to date on her colonoscopies. PHYSICAL EXAMINATION: VITAL SIGNS: 238 pounds, 5 feet 8, 36 BMI, 97.8, 58, 141/68. GENERAL: The patient is in no distress. LUNGS: Clear to auscultation. CARDIAC: Regular rate and rhythm without murmur or gallop. ABDOMEN: Soft, nontender. No mass. EXTREMITIES: Unremarkable. LABORATORY DATA: As noted. Since she was admitted this morning, upper GI was obtained and no contrast passed the esophagus and she could not swallow any significant amount of contrast to complete a barium swallow and upper GI. ASSESSMENT AND PLAN: Recurrent hiatal hernia and with esophageal outlet obstruction. She is not in any pain. There is no emergency to perform an operation tonight. Would consult Gastroenterology for an endoscopy to see if this can be resolved nonoperatively. Should this not be possible, she might need a repeat laparoscopy, possible open procedure. She understands these issues and consents. I have discussed with Dr. Coughlin and that his group will plan endoscopy tomorrow. Job ID: [id number]
--- NOTE | 2019-05-21 04:09 | CON ---
DATE OF CONSULTATION: 05/20/2019 REASON FOR CONSULTATION: Nausea, vomiting, history of hiatal hernia. CONSULTING PHYSICIAN: Jose Benitez MD HISTORY OF PRESENT ILLNESS: The patient is a 63-year-old female with past medical history of hypertension, GERD, and a hiatal hernia repair x2 in the past, presenting with increased nausea and vomiting. Per chart review, the patient underwent a Elder fundoplication in 2018 for large paraesophageal hernia, for which the patient did well until approximately November 2018 when she began to have increased symptoms of nausea, vomiting, and recurrence of her paraesophageal hernia. In November, she underwent mesh repair of the diaphragmatic hiatus and had been doing well until approximately 5 days ago when she began to experience inability to tolerate increased oral intake, that was subsequently followed by increased nausea and vomiting. When she would vomit, she would vomit primarily ingested material that was consumed within the last 5 to 10 minutes and would occur primarily with solids with the passage of liquids improved, but not necessarily easy to maintain. With this increased nausea and vomiting, she also experienced mild chest discomfort that was present with eating primarily solid foods. However, she denied any fevers, chills, diarrhea, constipation, melena, hematemesis, hematochezia, or weight loss with increasing intolerance to oral intake, and prompted her to seek healthcare assistance at [facility], where she was admitted to the hospital for further evaluation with Surgical Service as consultatory service. REVIEW OF SYSTEMS: A 10-category review of systems was obtained with all responses negative except for the pertinent positives as listed in HPI. PAST MEDICAL HISTORY: As per HPI. PAST SURGICAL HISTORY: Hiatal hernia repair times at least 2 with last repair in November 2018 with mesh repair at that time. FAMILY HISTORY: Unknown malignancy in the father, but no other stated GI malignancies. SOCIAL HISTORY: Denies any tobacco or illicit drug use, but does drink alcohol approximately 1 to 2 times per week. OUTPATIENT MEDICATIONS: Losartan 50 mg daily. ALLERGIES: NO KNOWN DRUG ALLERGIES. PHYSICAL EXAMINATION: VITAL SIGNS: Temperature 97.9, pulse 62, blood pressure 130/75, respiratory rate 18, saturating 100% on room air. GENERAL: The patient was lying in bed, in no acute distress. Alert and oriented x4. HEENT: Normocephalic, atraumatic. NECK: Supple. No JVD or scleral icterus noted. CARDIOVASCULAR: Regular rate and rhythm with no discernible murmurs, gallops, or rubs. RESPIRATORY: Clear to auscultation bilaterally with no discernible wheezes or rales. ABDOMEN: Normoactive bowel sounds. Soft, nontender, nondistended. EXTREMITIES: No cyanosis, clubbing, or edema. LABORATORY DATA: CBC with a white blood cell count of 7.2, hemoglobin 16.1, hematocrit 48.7, platelets 247. Chemistry with a sodium of 137, potassium 4.4, chloride 108, CO2 22, BUN 38, creatinine 1.57, glucose 100, AST 17, ALT 16, alkaline phosphatase 79, total bilirubin 1.4. CT of the abdomen and pelvis was obtained on May 19, 2019, which was read as normal with no intraabdominal abnormality; however, an upper GI series was obtained on May 20, 2019, which showed delayed passage of Gastrografin into a distended stomach with an air-fluid level, and contrast does not appear to readily go beyond the esophagus into the stomach consistent with a high-grade obstruction of the distal esophagus. ASSESSMENT AND PLAN: The patient is a 63-year-old female with past medical history of hypertension, and paraesophageal hernia, status post hernia repair x4 with most recent mesh repair in November 2018, presenting with nausea, vomiting, and abnormal GI imaging. Nausea and vomiting/hiatal hernia. The patient is presenting with a history of a large paraesophageal hernia, status post Elder fundoplication and more recently mesh repair of the diaphragmatic hiatus in November 2018. She responded well to these therapies and had been doing well until approximately 5 days ago when she acutely had onset of increased nausea and vomiting to the ingestion of primarily solid foods with some intolerance to liquids, for which she can only tolerate if sipped over a longer period of time. With increased nausea, vomiting, and chest discomfort, it prompted her to seek healthcare assistance with initial imaging negative for any overt intraabdominal pathology; however, she underwent an upper GI series on May 20, 2019, which showed evidence of a high-grade obstruction in the distal esophagus just proximal to the GE junction, as well as the presence of a large hiatal hernia displacing the esophagus laterally and posteriorly. At this time, it appears as though she has had a recurrence of her paraesophageal hernia that is then coupled with repair of the diaphragmatic hiatus essentially creating an esophageal outlet obstruction impeding the passage of solid food stuffs. However, within the differential is also a distal esophageal stricture and/or possible malignancy, but has not been seen up into this point, albeit these other options are less likely. RECOMMENDATIONS: 1. We would continue n.p.o. status at this time given the evidence of a high-grade obstruction on imaging. 2. We would plan for EGD tomorrow for intraluminal evaluation for possible stricture or malignancy creating this obstruction. 3. We will confer with General Surgery Service and if the EGD is negative for any intraabdominal pathology, would recommend laparoscopy for evaluation of her hiatal hernia and possible repeat repair. We will continue to follow. Please call with any questions. Job ID: [id number]
[2019-05-21] MEDS: Lactated Ringer's 1,000 ML IV SCH ×3 (05:49→17:08)
[2019-05-21 06:18] LABS: Anion Gap 11 mmol/L (10-20)
[2019-05-21 06:57] LABS: BUN (Urea Nitrogen) 25 mg/dL (9.8-20.1); Calc. Creatinine Clearance 93 mL/min (70-130); Calcium 9.4 mg/dL (7.8-10.44); Carbon Dioxide 21 mmol/L (23-31); Chloride 110 mmol/L (98-107); Estimated GFR-MDRD 54; Glucose 82 mg/dL (80-115); Potassium 3.7 mmol/L (3.5-5.1); Sodium 138 mmol/L (136-145)
--- NOTE | 2019-05-21 14:21 | PRG ---
DATE OF SERVICE: 05/21/2019 SUBJECTIVE: Ms. Mcdermott is a very pleasant 63-year-old female with past medical history significant for hiatal hernia, status post several repairs, most recent November 2018, who presented to the hospital with complaints of regurgitation, nausea, and very poor oral intake x4 days. The patient has been admitted with esophageal outlet obstruction. She has been seen by both GI and General Surgery. She is resting comfortably today and her sister is at the bedside. She denies any chest pain or shortness of breath. She has no nausea and has no pain of any kind at this time. The patient is n.p.o. for EGD and possible procedure this afternoon. OBJECTIVE: VITAL SIGNS: Blood pressure 131/64, pulse 62, O2 saturation is 99% on room air, respirations 18, and temperature 98.2. GENERAL: The patient is awake and alert, sitting up in bed, in no acute distress. HEENT: Head is atraumatic and normocephalic. Mucous membranes are moist. NECK: Supple. Trachea is midline. No JVD. CV: S1 and S2. Regular rate and rhythm. No appreciable murmurs, rubs, or gallops. LUNGS: Regular respiratory rate and pattern. Clear to auscultation bilaterally. ABDOMEN: Hypoactive bowel sounds. Belly is soft and nontender. EXTREMITIES: No edema. SKIN: Warm and dry. NEUROLOGIC: Cranial nerves 2 through 12 are grossly intact. The patient is nonfocal. LABORATORY DATA: White blood cell count 7.2, hemoglobin 16.1, hematocrit 48.7, platelets are 247. BMP from today reveal sodium 138, potassium 3.7, chloride 110, BUN is 25, creatinine 1.03, GFR 54. ASSESSMENT: 1. Esophageal obstruction. 2. Hiatal hernia, recurrent, status post repair x4 in the past. 3. Acute kidney injury on presentation secondary to poor oral intake and dehydration, resolved, creatinine normal today. 4. Hypertension. PLAN: The plan is for EGD today, for further evaluation of the stricture and potential etiology, and possible intervention. We will continue IV fluid resuscitation. Given the patient's symptoms and complexity of case, she meets inpatient criteria at this time. Further recommendations based on findings of EGD today. Job ID: [id number] [facility]
--- NOTE | 2019-05-21 16:04 | OP ---
DATE OF PROCEDURE: 05/21/2019 PROCEDURE PERFORMED: Esophagogastroduodenoscopy (diagnostic). INDICATION FOR PROCEDURE: Abnormal GI imaging with high-grade esophageal obstruction. DESCRIPTION OF PROCEDURE: After the risks and benefits of the procedure were explained to the patient including risks of bleeding, infection, perforation, reactions to anesthesia, aspiration and/or pain, informed consent was obtained. The patient was then taken to the endoscopy suite, where deep sedation was administered via propofol and anesthesia support. Once adequate sedation was achieved, the standard gastroscope was introduced into the mouth with intubation of the esophagus, stomach, and the proximal small intestine with the findings listed below. The patient tolerated the procedure well with no immediate perioperative complications. Upon conclusion of the procedure, the patient was taken to PACU in satisfactory condition. FINDINGS: Esophagus: Normal-appearing mucosa was seen in both the proximal and mid esophagus. However in the distal esophagus, there was a strict angulation of the esophageal lumen to approximately 90 degrees that then emptied into a large hiatal per large hernial sac. That sac itself appeared normal with no evidence of mucosal breakdown, ulcerations, or mass lesions. There was no evidence of esophageal stricture obstruction that was seen with the scope as well. After adequate visualization of the hernial sac was performed, the camera was then redirected inferiorly and was able to find the gastric lumen that led into the remainder of the stomach. However, upon withdrawal of the scope at the end of the procedure, significant friability was noted at the GE junction with increased bleeding at this particular region. The blood was evacuated with no discernible bleeding source, but did not exhibit any further bleeding once the scope was withdrawn from this area. There was no evidence of strictures or mass lesions in the distal esophagus that might contribute to her obstruction. Stomach: Normal-appearing mucosa was seen within the hernial sac with the gastric cardia, fundus, and body. Upon intubation of the remainder of the stomach, the distal fundus, body, and antrum were all well seen with increased mucosal erythema seen in the portion of the stomach still within the abdominal cavity. However, there was no evidence of erosions, ulcerations, mass, lesions, or active/recent bleeding. Duodenum: Normal-appearing mucosa was seen in both the duodenal bulb and second portion of the duodenum. There was no evidence of erosions, ulcerations, mass, lesions, or active/recent bleeding. IMPRESSION: 1. Strict angulation of the distal esophagus, emptying in a hernial sac consistent with a large paraesophageal hernia. 2. Increased friability at the gastroesophageal junction most likely denoting increased pressure at the gastroesophageal junction resulting in irritation, but no evidence of ulceration. It is unclear, if this is contributing to an ischemic process. 3. Normal-appearing mucosa within the hernial sac. 4. Mild mucosal erythema seen in the remainder of the stomach. RECOMMENDATIONS: 1. Would continue to trend H and H and transfuse as necessary to maintain H and H of 7/21. 2. Continue to monitor clinically for signs of GI bleeding. 3. We will place the patient on a clear liquid diet today as part of nutritional supplementation, but would refrain any administration of any solid foods. 4. Would refer to General Surgery Service for further evaluation of a large paraesophageal hernia. We will sign off at this time. Please call with any questions. Job ID: [id number]
[2019-05-21] MEDS ORDERED: PROPOFOL 200 MG/20 ML VIAL ONE (16:13)
[2019-05-21] MEDS ORDERED: diphenhydrAMINE 25 MG CAP PO PRN (16:58)
[2019-05-21] MEDS ORDERED: hydrALAZINE 20 MG/ML VIAL SLOW IVP PRN (16:58)
[2019-05-21] MEDS ORDERED: Labetalol HCl 100 MG/20 ML VIAL SLOW IVP PRN (16:58)
--- NOTE | 2019-05-21 18:20 | PRG ---
DATE OF SERVICE: 05/21/2019 SUBJECTIVE: Ms. Mcdermott is doing well today. I saw her this morning before having her upper endoscopy. Dr. Coughlin performed that. She had difficult cannulation of the stomach, but he was able to visualize this. She did have a paraesophageal hernia. OBJECTIVE: VITAL SIGNS: Temperature 97.8, heart rate 55, and blood pressure 148/78. LUNGS: Clear to auscultation. CARDIAC: Regular rate and rhythm without murmur or gallop. ABDOMEN: Soft and nontender. EXTREMITIES: Unremarkable. ASSESSMENT AND PLAN: Recurrent hiatal hernia. We will plan repair of this laparoscopically, possible open in the next 24 to 48 hours. Risks and benefits were discussed with the patient. Questions were answered. Job ID: [id number]
[2019-05-21] MEDS: Famotidine/PF 20 mg/2ml Vial SLOW IVP SCH (21:09)
[2019-05-21] MEDS: Enoxaparin Sodium 40 MG/0.4 ML SYRINGE SC SCH (21:09)
[2019-05-21] MEDS ORDERED: Ketorolac Tromethamine 30 MG/ML VIAL IVP PRN (23:58)
[2019-05-22] MEDS: Lactated Ringer's 1,000 ML IV SCH ×3 (01:18→20:21)
[2019-05-22 06:42] LABS: Anion Gap 14 mmol/L (10-20); BUN (Urea Nitrogen) 15 mg/dL (9.8-20.1); Calc. Creatinine Clearance 107 mL/min (70-130); Calcium 9.2 mg/dL (7.8-10.44); Carbon Dioxide 20 mmol/L (23-31); Chloride 107 mmol/L (98-107); Estimated GFR-MDRD 64; Glucose 70 mg/dL (80-115); Potassium 4.2 mmol/L (3.5-5.1); Sodium 137 mmol/L (136-145)
[2019-05-22 08:43] LABS: Magnesium 1.5 mg/dL (1.6-2.6); Phosphorus 3.2 mg/dL (2.3-4.7)
[2019-05-22] MEDS ORDERED: Levofloxacin 500 mg/D5W 100 ml Premix Bag ONE (09:33)
--- NOTE | 2019-05-22 09:33 | PRG ---
DATE OF SERVICE: 05/22/2019 CHIEF COMPLAINT: Recurrent paraesophageal hiatal hernia. HISTORY OF PRESENT ILLNESS: The patient is a 63-year-old female, who has had now 3 hiatal hernia repairs. The last of which was in November for paraesophageal hiatal hernia. She was doing well until about 11 days ago when she started having severe dysphagia. She was no longer able to consume any solid foods, went to liquids and was able to do liquids up until 3 days ago when she started foaming and was unable to keep anything down. She was in [place] on a vacation. She took an airplane here, was admitted through the emergency room. A CT scan showed a recurrent paraesophageal hiatal hernia on the left side. She underwent an EGD yesterday that showed recurrent paraesophageal hiatal hernia with normal-appearing mucosa. No evidence of ischemia. PHYSICAL EXAMINATION: VITAL SIGNS: Her temperature is 97.6, pulse 80, and blood pressure 128/72. LABORATORY DATA: Her white count is 7.2, H and H of 16 and 48, and platelet count 247. Her electrolytes are fine. IMAGING DATA: I reviewed the CT scan. There was no induration or evidence of gastric compromise. There is some esophageal dilatation. PLAN: We plan diagnostic laparoscopy, attempted laparoscopic repair, possible open procedure. Job ID: [id number]
[2019-05-22] MEDS ORDERED: Magnesium 2 GM/50 ML 2 GM in Premix Bag 1 BAG IVPB SCH (10:30)
[2019-05-22] MEDS ORDERED: Bupivacaine/Epinephrine 0.25% 30 ML VIAL ONE (11:09)
[2019-05-22] MEDS ORDERED: Midazolam HCl 2 mg/2 ml Vial ONE (11:10)
[2019-05-22] MEDS ORDERED: Fentanyl 100 MCG/2 ML VIAL ONE ×3 (11:10→14:25)
[2019-05-22] MEDS ORDERED: diphenhydrAMINE 50 MG/ML VIAL IVP PRN (14:05)
[2019-05-22] MEDS ORDERED: Promethazine HCl 25 MG/ML VIAL IM PRN ×2 (14:05→14:08)
[2019-05-22] MEDS ORDERED: Hydrocodone-Acetamin 15 ML UDCUP PO PRN (14:05)
[2019-05-22] MEDS ORDERED: Morphine 4 MG/ML VIAL SLOW IVP PRN ×2 (14:05)
[2019-05-22] MEDS ORDERED: Dextrose 5% in Water 1,000 ML IV PRN (14:05)
[2019-05-22] MEDS ORDERED: Ondansetron PF 4 MG/2 ML Vial IVP PRN (14:05)
[2019-05-22] MEDS ORDERED: Dextrose 50% Abboject 50 ML SYRINGE SLOW IVP PRN (14:05)
[2019-05-22] MEDS ORDERED: hydrALAZINE 20 MG/ML VIAL SLOW IVP PRN (14:05)
[2019-05-22] MEDS ORDERED: Promethazine HCl 25 MG/ML VIAL SLOW IVP PRN (14:08)
[2019-05-22] MEDS ORDERED: Ondansetron HCl/PF 4 MG/2 ML Vial IVP PRN (14:08)
[2019-05-22] MEDS ORDERED: D5 1/2 NS w/20 mEq KCL 1,000 ML ONE (14:15)
[2019-05-22] MEDS ORDERED: Promethazine HCl 12.5 MG in Sodium Chloride 0.9% 50 ML IVPB PRN (14:30)
[2019-05-22] MEDS ORDERED: Glycopyrrolate 0.2 MG/ML 5 ML SYRINGE ONE (15:35)
[2019-05-22] MEDS ORDERED: Succinylcholine Chloride 20 MG/ML 10 ml SYRINGE FS ONE (15:35)
[2019-05-22] MEDS ORDERED: PROPOFOL 200 MG/20 ML VIAL ONE (15:35)
[2019-05-22] MEDS ORDERED: Dexamethasone 20 MG/5 ML VIAL ONE (15:35)
[2019-05-22] MEDS ORDERED: Rocuronium Bromide 10 MG/ML (10ML VIAL) ONE (15:35)
[2019-05-22] MEDS ORDERED: ePHEDrine 50 MG/ML VIAL ONE (15:35)
[2019-05-22] MEDS ORDERED: Lidocaine 1% PF 5 ML VIAL ONE (15:35)
[2019-05-22] MEDS ORDERED: Ondansetron PF 4 MG/2 ML Vial ONE (15:35)
[2019-05-22] MEDS: D5 1/2 NS w/20 mEq KCL 1,000 ML IV SCH (18:27)
[2019-05-22 19:31] VITALS: TEMP 97.6
[2019-05-22] MEDS: Famotidine/PF 20 mg/2ml Vial SLOW IVP SCH (20:18)
[2019-05-22] MEDS: CEFAZOLIN 2 GM in Premix Bag 1 BAG IVPB SCH (21:46)
--- NOTE | 2019-05-22 21:52 | PRG ---
DATE OF SERVICE: 05/22/2019 SUBJECTIVE: Ms. Mcdermott is a very pleasant 63-year-old female, with past medical history significant for hiatal hernia, status post several repairs, who presented to the hospital with complaints of regurgitation, nausea, and very poor oral intake for 4 days prior to her admission. The patient has been admitted with esophageal stricture and hiatal hernia. Today, she underwent laparoscopic repair with Dr. Ledezma. She is seen shortly postoperatively up on the floor. She remains somewhat drowsy from anesthesia, however, is answering questions appropriately. She complains of some minor postoperative pain. She denies any shortness of breath or nausea. OBJECTIVE: VITAL SIGNS: Blood pressure 118/67, pulse 82, O2 saturation is 96% on 2 L via nasal cannula, temperature 97.8. GENERAL: The patient is lying supine in bed, breathing easily, and in no acute distress. HEENT: Head is atraumatic and normocephalic. NECK: Supple. Trachea is midline. CV: S1 and S2. Regular rate and rhythm. No appreciable murmurs, rubs, or gallops. LUNGS: Regular respiratory rate and pattern, overall clear to auscultation bilaterally. ABDOMEN: Inspection reveals 3 small laparoscopic incisions that are well approximated and closed. There is no oozing or drainage. There is minimal ecchymosis. SKIN: Warm and dry. EXTREMITIES: Show no edema. +2 DP pulses bilaterally. LABORATORY DATA: Sodium 137, potassium 4.2, chloride 107, carbon dioxide 20, BUN 15, creatinine 0.89, glucose is 98, magnesium is 1.5. ASSESSMENT: 1. Esophageal stricture and hiatal hernia, status post laparoscopic repair today with Dr. Ledezma. 2. Acute kidney injury on presentation, secondary to poor oral intake and dehydration, resolved. 3. Hypertension. 4. Mild hypomagnesemia status post repletion. PLAN: We will continue postoperative pain control and monitor the patient's vital signs closely. She is receiving prophylactic antibiotic coverage as well. Walking program has been ordered for the patient as well as DVT prophylaxis. We will continue to monitor her electrolytes. Further recommendations based on hospital course. Job ID: [id number]
[2019-05-23] MEDS: D5 1/2 NS w/20 mEq KCL 1,000 ML IV SCH ×2 (02:54→07:36)
[2019-05-23 04:43] LABS: #Lymphocytes 0.6 thou/uL (1.20-3.40); #Monocytes 0.5 thou/uL (0.11-0.59); #Neutrophils 5.5 thou/uL (1.40-6.50); %Eosinophils 0.1 % (0.0-10.0); %Lymphocytes 8.9 % (21.0-51.0); %Monocytes 7.7 % (0.0-10.0); %Neutrophils 83.3 % (42.0-75.0); Hemoglobin 13.5 g/dL (12.0-16.0); Mean Corpuscular HGB CONC 34.8 g/dL (32.0-36.0); Mean Corpuscular Hemoglobin 33.1 pg (27.0-31.0); Mean Corpuscular Volume 95.2 fL (78.0-98.0); Mean Platelet Volume 8.2 fL (7.4-10.4); Platelet Count 178 thou/uL (130-400); RBC Distribution Width 10.7 % (11.5-14.5); Red Blood Cell (RBC) Count 4.07 mill/uL (4.20-5.40); White Blood Cell (WBC) Count 6.6 thou/uL (4.8-10.8)
[2019-05-23 05:04] LABS: Anion Gap 12 mmol/L (10-20); BUN (Urea Nitrogen) 13 mg/dL (9.8-20.1); Calc. Creatinine Clearance 96 mL/min (70-130); Calcium 9.1 mg/dL (7.8-10.44); Carbon Dioxide 21 mmol/L (23-31); Chloride 105 mmol/L (98-107); Estimated GFR-MDRD 56; Glucose 177 mg/dL (80-115); Potassium 4.4 mmol/L (3.5-5.1); Sodium 134 mmol/L (136-145)
[2019-05-23] MEDS: Lactated Ringer's 1,000 ML IV SCH ×2 (05:44→09:38)
[2019-05-23] MEDS: CEFAZOLIN 2 GM in Premix Bag 1 BAG IVPB SCH (05:55)
--- NOTE | 2019-05-23 08:36 | RAD ---
Exam: Upper GI without air: Gastrografin swallow. History: Postop gastric bypass and sleeve. Fluoroscopy time 0.3 minutes. 4 Portable fluoroscopic spot images. Dose 6.652 uGycm^2 Contrast media passed through the GE junction region in the postoperative stomach. No evidence for ob struction or extravasation. IMPRESSION: Unremarkable postoperative Gastrografin swallow.
[2019-05-23] MEDS ORDERED: Pantoprazole 40 MG VIAL IVP SCH (09:00)
[2019-05-23] MEDS ORDERED: Enoxaparin Sodium 40 MG/0.4 ML SYRINGE SC SCH (09:00)
--- NOTE | 2019-05-23 11:27 | OP ---
DATE OF PROCEDURE: 05/22/2019 PREOPERATIVE DIAGNOSIS: Recurrent incarcerated paraesophageal hiatal hernia. PROCEDURE PERFORMED: Laparoscopic repair of recurrent paraesophageal hiatal hernia with intraoperative esophagogastroscopy. INDICATIONS: The patient is a 63-year-old female, who had a recurrent hiatal hernia repair done in November and was doing well until about 11 days ago when she started having progressive dysphagia and complete dysphagia within the last 3 days. She was found to have a recurrent hiatal hernia on CT and EGD. FINDINGS: Recurrent paraesophageal hiatal hernia. The mesh that was completely intact circumferentially. No ischemic tissue seen. There was a lot of fluid in the hernia sac. DESCRIPTION OF PROCEDURE: After informed consent was obtained, the patient was taken to the operating room and given general endotracheal anesthesia and placed in the supine position. Abdomen was prepped and draped in usual fashion. Local anesthesia was infiltrated subcutaneously and deep. A 5 mm incision was performed approximately 8 inches above the xiphoid slightly to the left. Veress needle was inserted. Drop test was performed. Pneumoperitoneum was created to a volume of 2 L of carbon dioxide. Utilizing a bladeless 5 mm trocar and 0-degree laparoscope, direct visual entry into abdominal cavity was performed. Pneumoperitoneum was created to a pressure of 15 mmHg. The patient was placed in steep reverse Trendelenburg position. Lashawn liver retractor was inserted. Left lobe of liver retracted superiorly. A 5 mm port was placed just to the left of the falciform and an 8 mm port was placed subcostal on the left and then another 5 mm port in left lateral. Using careful dissection, the hiatal hernia was reduced for the most part. Posterior esophageal dissection was performed bluntly and a [place] drain was placed. This allowed further retraction to completely reduce the stomach including some of the esophagus and the old wrap. Now the esophagus was dilated from the obstruction and so to be sure that I had gotten complete reduction of the stomach, I placed a videoendoscope intraoperatively and advanced it into the stomach and then was able to see that the EG junction was indeed intra-abdominally and the dilated tissue was esophagus. Then, went back laparoscopically and sutured the mesh circumferentially to the esophagus with about twelve 2-0 silk sutures tied intracorporeally. Then, used Tisseel tissue sealant to further seal that repair circumferentially. Then, intraoperative endoscopy was again performed and videoendoscope was reintroduced. The scope was retroflexed. The repair looked good. There was no paraesophageal component. The stomach was decompressed. Scope was removed. The trocars and retractors were removed. The skin was closed with interrupted 4-0 Rapide. Dermabond was applied. The patient tolerated the procedure well and transferred to Recovery in good condition. Sponge and needle count verified correct x2. Job ID: [id number]
[2019-05-23 12:03] VITALS: BP 134/78
[2019-05-23] MEDS ORDERED: GASTROGRAFIN 30 ML BOT ONE (12:30)
--- NOTE | 2019-05-23 13:00 | DIS ---
DATE OF ADMISSION: 05/21/2019 DATE OF DISCHARGE: 05/23/2019 DISCHARGE DIAGNOSIS: Recurrent incarcerated paraesophageal hiatal hernia. PROCEDURES DURING ADMISSION: Esophagogastroduodenoscopy, laparoscopic, recurrent hiatal hernia repair. HOSPITAL COURSE: The patient was admitted. CT scan showed obstruction. She was given IV fluids. GI consulted. They did an EGD, saw the paraesophageal hernia as well. She went to surgery, had repair. Postoperatively, Gastrografin swallow was performed, it was fine. She was started on liquids. She is tolerating well. She is discharged home on hydrocodone and Zofran. She will follow up with me in 2 weeks. Job ID: [id number]
--- NOTE | 2019-05-23 14:48 | DIS ---
DATE OF ADMISSION: 05/21/2019 DATE OF DISCHARGE: 05/23/2019 DISCHARGE DISPOSITION: Home. FOLLOWUP: Follow up with primary care physician in 1 week. Follow up with General Surgery, Dr. Ledezma in 1 week. INPATIENT CONSULTANTS: 1. General Surgery, Dr. Ledezma. 2. Gastro[address] Dr[address] Coughlin. INPATIENT PROCEDURES: On May,, the patient underwent EGD that showed large paraesophageal hernia with increased friability at the gastroesophageal junction. On May,, the patient underwent laparoscopic repair of the recurrent [QAMARKER]hiatal hernia with intraoperative esophagoscopy. DIAGNOSTIC TESTS: CT scan of the abdomen and pelvis on admission was negative for acute intraabdominal or pelvic pathology. It showed diverticulosis and hiatal hernia. Upper GI series on May, showed high-grade obstruction in the distal esophagus just proximal to the GE junction. Today, the patient underwent upper GI series that was unremarkable. BRIEF HOSPITAL COURSE: The patient is a 63-year-old female with recurrent hiatal hernia, presented to the hospital with nausea and vomiting. Workup was consistent with esophageal outlet obstruction from recurrent hiatal hernia. She underwent EGD followed by laparoscopic repair of the hernia as discussed above. She did well postoperatively. She also had acute kidney injury with creatinine 2.02 on admission and 0.89 at discharge. She has been cleared by consultants for discharge. She will resume losartan 50 mg daily. Vital signs on the day of discharge showed temperature 97.6, pulse rate of 65, respirations are 16, blood pressure of 134/78, with O2 saturation 95% on room air. SIGNIFICANT LABORATORY DATA: Creatinine on admission 2.02 and at discharge 0.89. Magnesium 1.5, replaced. Hemoglobin 13.5 with hematocrit 38.7. FINAL DIAGNOSES: 1. Recurrent hiatal hernia causing esophageal outlet obstruction. 2. Acute kidney injury secondary to dehydration. 3. Metabolic acidosis. 4. Hypomagnesemia, replaced. 5. Obesity with a body mass index of 36.2. 6. Hypertension. 7. Diverticulosis. 8. Nausea and vomiting secondary to #1. Job ID: [id number]
== END 2019-05-23 13:47 | disposition home or self-care (01) | DRG 327 ==
LOC: ERS 15:49 → 3SE 23:00 → OBSVTOIN 05-21 10:05 → SURG A 05-21 12:21 → 3SE 05-21 15:51 → SURG B 05-22 14:30
PROVIDERS: ADMIT Internal Medicine; ATTEND Internal Medicine
PROC: 0DJ08ZZ Inspection of Upper Intestinal Tract, Via Natural or Artificial Opening Endoscopic (ICD-10-PCS; 2019-05-21)
PROC: 0BUT4JZ Supplement Diaphragm with Synthetic Substitute, Percutaneous Endoscopic Approach (ICD-10-PCS; principal; 2019-05-22)
DX: K44.0 Diaphragmatic hernia with obstruction, without gangrene (principal); N17.9 Acute kidney failure, unspecified; E87.2 Acidosis; K57.90 Diverticulosis of intestine, part unspecified, without perforation or abscess without bleeding; E86.0 Dehydration; I10 Essential (primary) hypertension; K21.9 Gastro-esophageal reflux disease without esophagitis; E83.42 Hypomagnesemia; E66.9 Obesity, unspecified; Z90.49 Acquired absence of other specified parts of digestive tract; Z68.36 Body mass index [BMI] 36.0-36.9, adult
CPT/HCPCS: 36415; 36416; 74176; 74241; 74247; 80048; 80053; 83690; 83735; 84100; 85025; 94760; 96361; 96365; 96375; C9113; J0360; J0690; J1100; J1200; J1650; J1885; J1956; J2001; J2250; J2270; J2405; J2550; J2704; J2765; J3010; J3475; J3490; Q0162; Q9963; S0028

== ENCOUNTER 2020-01-15 08:53 | Outpatient (CLI) | payer OTHER, MEDICARE ==
--- NOTE | 2020-01-15 10:18 | RAD ---
EXAM: XR UGI Air Contrast PROVIDED CLINICAL HISTORY: Dysphagia COMPARISON: 05/23/2019 FINDINGS: Administered oral contrast material demonstrates holdup at the expected location of distal thoracic e sophagus. There is abrupt narrowing in the region of holdup. Contrast material traverses this region slowly but eventually passes. A 12.5 mm barium tablet is retained at the distal thoracic esoph garcía. Sufficient air was not retained by the patient for evaluation of the esophageal mucosa. Insufficient contrast material and gas were present within the stomach for evaluation of the stomach mucosa, without evidence for hiatal hernia. IMPRESSION: Focal narrowing involving the distal thoracic esophagus with holdup of contrast material transiently and holdup of barium tablet. Benign or malignant stricture could be considered.
== END 2020-01-15 08:54 | disposition home or self-care (01) ==
LOC: RAD 08:53
PROVIDERS: ATTEND Surgery
DX: R13.10 Dysphagia, unspecified (principal)
CPT/HCPCS: 74246